=== PATIENT | male | born 1960 | race Caucasian/White ===

== ENCOUNTER 2016-10-02 13:04 | Emergency (ER) | payer OTHER ==
[2016-10-02 13:28] VITALS: BP 170/121
--- NOTE | 2016-10-02 13:40 | EDM.PDOC ---
ED HPI HEAD INJURY - General Chief Complaint: Head Injury Stated Complaint: LT PINKY INJURY Time Seen by Provider: 10/02/16 13:21 Source: Reports: Patient, Other (coworker) History Limitations: Reports: No limitations - History of Present Illness INITIAL COMMENTS - FREE TEXT/NARRATIVE: 55 years old w m came to the ed with his coworker after he injured his left 5th finger at work between 2 metals. Pt has FROM his left finger. he has 2 minor abrasions at his left 5th finger distal phahalanx, no active bleed. TD not UTD. No other acute medical issues. Symptom Onset Date: 10/02/16 Symptom Onset Time: 12:00 Timing/Duration: Reports: Sudden onset Location: Reports: other (5th finger left side ) Quality: Reports: ache Severity: mild Improves with: none Worsens with: none - Related Data Allergies/ADRs: Allergies Allergy/AdvReac Type Severity Reaction Status Date / Time codeine Allergy Nausea Verified 10/02/16 13:19 Home Meds: Home Meds Cephalexin [Keflex] 500 mg PO Q6HR #40 cap 10/02/16 [Rx] Losartan [Cozaar] 50 mg PO DAILY 10/02/16 [History] Social & Family History - Tobacco Use Smoking Status *Q: Never Smoker Second Hand Smoke Exposure: No - Caffeine Use Caffeine Use: Reports: None - Recreational Drug Use Recreational Drug Use: No ED ROS GENERAL - Review of Systems Review Of Systems: See Below Constitutional: Reports: no symptoms HEENT: Reports: No symptoms Respiratory: Reports: No Symptoms Cardiovascular: Reports: No symptoms Endocrine: Reports: no symptoms GI/Abdominal: Reports: No symptoms : Reports: no symptoms Musculoskeletal: Reports: hand pain (finger pain) Skin: Reports: wound (abrasions left 5th finger) Neurological: Reports: No Symptoms Psychiatric: Reports: No symptoms Hematologic/Lymphatic: Reports: no symptoms Immunologic: Reports: no symptoms ED EXAM, HEAD INJURY - Physical Exam Exam: See Below Exam Limited By: No limitations General Appearance: alert, WD/WN, mild distress Head: atraumatic, normocephalic Eyes: bilateral eye: normal inspection Ears: normal external exam, normal canal, hearing grossly normal Nose: normal inspection, normal mucousa, no blood Throat/Mouth: Normal inspection, Normal lips, Normal teeth, Normal gums Neck: non-tender, full range of motion, normal alignment, normal inspection Respiratory: no respiratory distress, lungs clear, normal breath sounds Cardiovascular: normal peripheral pulses, regular rate, rhythm, no edema GI/Abdominal Exam (Abbreviated): normal bowel sounds, soft, non tender, no organomegaly (Male) Exam: Deferred Rectal (Males) Exam: Deferred Back Exam: normal inspection, full range of motion Extremities: other (abrasions left 5th finger) Neurologic: voice studies director II-XII nml as tested Skin: Other (abrasions left 5th finger) - [place] Coma Score Best Eye Response ([place]): (4) open spontaneously Best Verbal Response ([place]): (5) oriented Best Motor Response ([place]): (6) obeys commands Janeth Total: 15 Course - Vital Signs Text/Narrative:: 55 years old w m came to the ed with his coworker after he injured his left 5th finger at work between 2 metals. Pt has FROM his left finger. he has 2 minor abrasions at his left 5th finger distal phahalanx, no active bleed. TD not UTD. PE: Abrasion Left 5th distal phalanx Imaginth finger, left, NAD Impression: Abrasions left 5th finger, work injury Tx: TD, wound care, Keflex Plan: D/C with instructions as per coworker, pt is working on a "light duty" machine and does not need to be on "work restriction". Patient agreed! Last Recorded V/S: Last Vital Signs Temp 36.9 C 10/02/16 13:21 Pulse 83 10/02/16 13:21 Resp 18 10/02/16 13:21 BP 170/121 H 10/02/16 13:21 Pulse Ox 95 10/02/16 13:21 - Orders/Labs/Meds Orders: Active Orders 24 hr Category Date Time Status Vaccines to be Administered [RC] PER UNIT ROUTINE Care 10/02/16 13:48 Active Fingers Fifth Digit Lt F4 [CR] Stat Exams 10/02/16 13:19 Ordered Meds: Medications Discontinued Medications Generic Name Dose Route Start Last Admin Trade Name Freq PRN Reason Stop Dose Admin Cephalexin 500 mg 10/02/16 13:47 10/02/16 14:00 Keflex PO 10/02/16 13:48 500 mg ONETIME ONE Administration Diphtheria/Tetanus/Acell Pertussis 0.5 ml 10/02/16 13:48 10/02/16 14:01 Adacel IM 10/02/16 13:49 0.5 ml .ONCE ONE Administration Departure - Departure Time of Disposition: 13:55 Disposition: Home, Self-Care 01 Condition: good Clinical Impression: Work place accident, Finger abrasion, non-infected Prescriptions: Cephalexin [Keflex] 500 mg PO Q6HR #40 cap Referrals: Celso Bella MD [Primary Care Provider] - Forms: ED Department Discharge Additional Instructions: Please apply neosporine to wound twice daily for 5 days, Keflex as recommended, please follow up, please come back if symptoms get worse acutely. - My Orders Last 24 Hours: My Active Orders 10/02/16 13:19 Fingers Fifth Digit Lt F4 [CR] Stat 10/02/16 13:48 Vaccines to be Administered [RC] PER UNIT ROUTINE - Assessment/Plan Last 24 Hours: My Active Orders 10/02/16 13:19 Fingers Fifth Digit Lt F4 [CR] Stat 10/02/16 13:48 Vaccines to be Administered [RC] PER UNIT ROUTINE
[2016-10-02] MEDS ORDERED: Cephalexin 500 MG Cap PO ONE (13:47)
[2016-10-02] MEDS ORDERED: Diphtheria,Pertussis(Acell),Tetanus Vaccine 0.5 ML SDV IM ONE (13:48)
--- NOTE | 2016-10-04 13:13 | CR ---
INDICATION: Smashed top of 5th left finger. LEFT 5TH FINGER: Three views of the left 5th finger revealed no evidence of an acute fracture or dislocation. Mild degenerative changes are noted at the DIP joint with minimal degenerative changes at the 5th metacarpophalangeal joint. IMPRESSION: Osteoarthritis. MTDD
== END 2016-10-02 14:25 | disposition home or self-care (01) ==
LOC: FB.ED 13:04
DX: S60.417A Abrasion of left little finger, initial encounter (principal); Z23 Encounter for immunization; Z88.5 Allergy status to narcotic agent; W23.0XXA Caught, crushed, jammed, or pinched between moving objects, initial encounter; Y99.0 Civilian activity done for income or pay
CPT/HCPCS: 73140; 90715; 96372; 99000; 99283; A4217; A9270; 90471

== ENCOUNTER 2019-02-24 22:43 | Emergency (ER) | payer BC, OTHER ==
[2019-02-24] MEDS ORDERED: Albuterol 8 GM Inhaler INH ONE (22:44)
[2019-02-24] MEDS ORDERED: predniSONE 20 MG Tab PO ONE (22:44)
[2019-02-24] MEDS ORDERED: Albuterol/Ipratropium 3.0-0.5 MG/3 ML Neb Soln NEB ONE (23:16)
--- NOTE | 2019-02-24 23:19 | EDM.PDOC ---
ED HPI GENERAL MEDICAL PROBLEM - General Stated Complaint: SICK Time Seen by Provider: 02/24/19 23:17 Source of Information: Reports: Patient History Limitations: Reports: No Limitations - History of Present Illness INITIAL COMMENTS - FREE TEXT/NARRATIVE: Keny complains of difficulty breathing. This started today,after having cold symptoms for the last 2 days. He has a productive cough,sore throat,but no chest pain,or fever. Has not tried anything.Previously healthy. - Related Data Allergies Allergy/AdvReac Type Severity Reaction Status Date / Time codeine Allergy Nausea Verified 02/24/19 23:15 Home Meds: Home Meds Losartan Potassium 100 mg PO DAILY 02/24/19 [History] Social & Family History - Caffeine Use Caffeine Use: Reports: None ED ROS GENERAL - Review of Systems Review Of Systems: ROS reveals no pertinent complaints other than HPI. ED EXAM, GENERAL - Physical Exam Exam: See Below Exam Limited By: No Limitations General Appearance: Alert, WD/WN, No Apparent Distress Nose: Normal Inspection Throat/Mouth: Normal Inspection Head: Atraumatic Respiratory/Chest: No Respiratory Distress, Lungs Clear, Normal Breath Sounds Cardiovascular: Normal Peripheral Pulses EKG INTERPRETATION Rhythm: NSR Course - Orders/Labs/Meds Orders: Active Orders 24 hr Category Date Time Status EKG Documentation Completion [RC] ASDIRECTED Care 02/24/19 23:34 Active RT Aerosol Therapy [RC] ASDIRECTED Care 02/24/19 23:16 Active Chest 2V [CR] Stat Exams 02/24/19 23:16 Taken EKG 12 Lead [EK] Routine Ther 02/24/19 23:34 Ordered Labs: Laboratory Tests 02/24/19 02/24/19 02/24/19 Range/Units 23:50 23:50 23:50 D-Dimer, Quantitative < 0.19 (0.0-0.59) mg/LFEU Sodium 145 (135-145) mmol/L Potassium 3.8 (3.5-5.3) mmol/L Chloride 109 (100-110) mmol/L Carbon Dioxide 29 (21-32) mmol/L BUN 28 H (7-18) mg/dL Creatinine 1.0 (0.70-1.30) mg/dL Est Cr Clr Drug Dosing TNP Estimated GFR (MDRD) > 60 (>60) BUN/Creatinine Ratio 28.0 H (9-20) Glucose 84 (80-116) mg/dL Calcium 8.7 (8.6-10.2) mg/dL Troponin I < 0.017 L (<0.017-0.056) ng/mL NT-Pro-B Natriuret Pep 128 H (<=125) pg/mL Meds: Medications Discontinued Medications Generic Name Dose Route Start Last Admin Trade Name Yuly PRN Reason Stop Dose Admin Albuterol/Ipratropium 3 ml 02/24/19 23:16 02/24/19 23:26 Duoneb 3.0-0.5 Mg/3 Ml NEB 02/24/19 23:17 3 ml ONETIME ONE Administration Departure - Departure Time of Disposition: 00:26 Disposition: Home, Self-Care 01 Condition: Good Clinical Impression: Acute bronchitis - Discharge Information Referrals: Celso Bella MD [Primary Care Provider] - - Problem List & Annotations (1) Acute bronchitis SNOMED Code(s): 85332949 Code(s): J20.9 - ACUTE BRONCHITIS, UNSPECIFIED Status: Acute Current Visit: Yes Qualifiers: Bronchitis organism: unspecified organism Qualified Code(s): J20.9 - Acute bronchitis, unspecified - Problem List Review Problem List Initiated/Reviewed/Updated: Yes - My Orders Last 24 Hours: My Active Orders 02/24/19 23:16 RT Aerosol Therapy [RC] ASDIRECTED Chest 2V [CR] Stat 02/24/19 23:34 EKG Documentation Completion [RC] ASDIRECTED EKG 12 Lead [EK] Routine - Assessment/Plan Last 24 Hours: My Active Orders 02/24/19 23:16 RT Aerosol Therapy [RC] ASDIRECTED Chest 2V [CR] Stat 02/24/19 23:34 EKG Documentation Completion [RC] ASDIRECTED EKG 12 Lead [EK] Routine Plan: Improved on Duoneb. DC home on ALbuterol and Prednisone.
== END 2019-02-25 00:39 | disposition home or self-care (01) ==
LOC: FB.ED 22:43
DX: J20.9 Acute bronchitis, unspecified (principal); Z88.8 Allergy status to other drugs, medicaments and biological substances; Z79.899 Other long term (current) drug therapy
CPT/HCPCS: 36415; 71046; 80048; 83880; 84484; 85379; 93005; 94640; 99283-25; A9270-GY; J7620-GY